=== PATIENT | male | born 1955 | race Caucasian/White ===

== ENCOUNTER 2017-03-01 13:05 | Day surgery (SDC) | payer OTHER ==
[2017-03-01 13:34] VITALS: BP 137/69; PULSE 75; RESP 16; TEMP 98.6; O2SAT 97
--- NOTE | 2017-03-01 14:13 | RADRPT ---
EXAM DATE/TIME: 03/01/2017 13:35 [place] COMPARISON: No previous studies available for comparison. INDICATIONS : Abdominal distention. MEDICAL HISTORY : Hypertension. Liver failure. SURGICAL HISTORY : Paracentesis. Colonoscopy. ENCOUNTER: Initial ACUITY: 2 weeks PAIN SCORE: 2/10 LOCATION: Bilateral lower quadrant AREA EVALUATED: Bilater lower and upper quadrants. FINDINGS: Imaging of the abdomen and pelvis was performed to evaluate for ascites for possible paracentesis. N o significant fluid identified. CONCLUSION: No significant fluid identified. Paracentesis was not performed. Keanu Gonzalez MD on March 01, 2017 at 14:10 Board Certified Radiologist. This report was verified electronically.
== END 2017-03-01 14:02 | disposition home or self-care (01) ==
LOC: HRAD 13:05 → HRIP 13:11 → HRAD 14:02
DX: R14.0 Abdominal distension (gaseous) (principal); R18.8 Other ascites; K74.60 Unspecified cirrhosis of liver; I10 Essential (primary) hypertension
CPT/HCPCS: 76705

== ENCOUNTER → 2017-06-06 | Outpatient (CLI) | payer OTHER ==
[~2017-06-06] VITALS: Ht 167.6 cm; Wt 102.3 kg
[~2017-06-06] MED LIST: BUME2TAB PO; CARV3.12 PO; CHEL50TA PO; CHLORHEXIDINE GLUCONATE 2 % 1 PACK (2 CLOTHS) TOPICAL PRN; DO NOT ADM ANY ANTICOAGULANT DRUGS PRN; INSULIN HUMAN REGULAR 1,000 UNITS/10 ML VIAL SQ PRN; LACTATED RINGER'S 1000 ML IV PRN; LEVOFLOXACIN 500 MG PREMIX INJ 100 ML IV ONE; METOPROLOL TARTRATE 25 MG TAB PO PRN; POTA1TAB77 PO; POVIDONE IODINE 5% (ANTISEPSIS KIT) 4 APPLICATIONS EACH NARE PRN; PROPOFOL 200 MG/20 ML AMP IV ONE; SODIUM CHLORID 0.9% 500 ML IV PRN; SPIR50TA PO; VITA1CAP7 PO; XIFA550T4 PO
--- NOTE | 2017-06-06 13:19 | GIPROC ---
[facility] [address] [facility]. [facility], [address] EGD PROCEDURE REPORT EXAM DATE: 06/06/2017 PATIENT NAME: Giorgi Monge MR #: [id number] BIRTHDATE: 1955 ATTENDING: Belgica Martinez MD ORDER #: [id number] CORPORATE QUALITY ENGINEER: Jewels Herr and Noy Harding STATUS: outpatient INDICATIONS: The patient is a 62 yr old male here for an EGD due to liver cirrhosis, esophageal varices PROCEDURE PERFORMED: EGD w/ biopsy EGD w/ band ligation of varices MEDICATIONS: None and Per Anesthesia. TOPICAL ANESTHETIC: none CONSENT: The patient understands the risks and benefits of the procedure and understands that these risks include, but are not limited to: sedation, allergic reaction, infection, perforation and/or bleeding. Alternative means of evaluation and treatment include, among others: physical exam, x-rays, and/or surgical intervention. The patient elects to proceed with this endoscopic procedure. medical equipment was checked for proper function. Hand hygiene and appropriate measures for infection prevention was taken. After the risks, benefits and alternatives of the procedure were thoroughly explained, Informed consent was verified, confirmed and timeout was successfully executed by the treatment team. The patient was anesthetized with topical anesthesia and the Pentax EG-[id number] endoscope was introduced through the mouth and advanced to the second portion of the duodenum. Retroflexed views revealed a hiatal hernia The gastroscope was then slowly withdrawn and removed. Portal gastropathy esophageal varices -grade 3 -3 columns-4 bands applied. ADVERSE EVENTS: There were no complications. IMPRESSIONS: 1. Portal gastropathy esophageal varices -grade 3 -3 columns-4 bands applied 2. Retroflexed views revealed a hiatal hernia RECOMMENDATIONS: 1. Anti-reflux regimen 2. Await biopsy results. Biopsy results will not be ready for 7-10 days. If you don't hear from us in two weeks, call our office for biopsy results. 3. Clear liquid diet today than soft PATIENT CONDITION: stable DISPOSITION: Home REPEAT EXAM: Return 3 months as needed for EGD pending pathology report Belgica Martinez MD eSigned: Belgica Martinez MD 06/06/2017 1:18 PM cc:
[2017-06-06 14:33] VITALS: BP 122/72; PULSE 66; RESP 16; TEMP 98.6; O2SAT 99
--- NOTE | 2017-06-06 20:12 | EKG ---
Date Performed: 06/06/2017 Time Performed: 09:11:00 PTAGE: 62 years EKG: Sinus rhythm MINIMAL ST DEPRESSION BORDERLINE ECG NO PREVIOUS TRACING DOCTOR: Ga Vargas Interpretating Date/Time 06/06/2017 20:10:39
== END ==
LOC: HEND 08:39
PROVIDERS: ATTEND Internal Medicine Gastroenterology
DX: I85.00 Esophageal varices without bleeding (principal); K74.60 Unspecified cirrhosis of liver; K44.9 Diaphragmatic hernia without obstruction or gangrene; K76.6 Portal hypertension; K31.89 Other diseases of stomach and duodenum; R94.31 Abnormal electrocardiogram [ECG] [EKG]
CPT/HCPCS: 00740; 43239; 43244; 88305; 88312; 93005; J1956; J7120

== ENCOUNTER → 2017-09-04 | Day surgery (SDC) | payer OTHER ==
[~2017-09-04] MED LIST changes: -CHLORHEXIDINE GLUCONATE 2 % 1 PACK (2 CLOTHS) TOPICAL PRN; -DO NOT ADM ANY ANTICOAGULANT DRUGS PRN; -INSULIN HUMAN REGULAR 1,000 UNITS/10 ML VIAL SQ PRN; -LACTATED RINGER'S 1000 ML IV PRN; -LEVOFLOXACIN 500 MG PREMIX INJ 100 ML IV ONE; -METOPROLOL TARTRATE 25 MG TAB PO PRN; -POVIDONE IODINE 5% (ANTISEPSIS KIT) 4 APPLICATIONS EACH NARE PRN; -SODIUM CHLORID 0.9% 500 ML IV PRN
--- NOTE | 2017-09-04 10:34 | GIPROC ---
[facility] [address] [facility], [address] EGD PROCEDURE REPORT EXAM DATE: 09/04/2017 PATIENT NAME: Giorgi Monge MR #: [id number] BIRTHDATE: 1955 ATTENDING: Zaira Ojeda MD ORDER #: [id number] [employer]UCTURAL MILL SUPERVISOR: Geovanny Christensen RN STATUS: outpatient INDICATIONS: The patient is a 62 yr old male here for an EGD due to screening for varices PROCEDURE PERFORMED: EGD w/ biopsy MEDICATIONS: None and Per Anesthesia. TOPICAL ANESTHETIC: CONSENT: The patient understands the risks and benefits of the procedure and understands that these risks include, but are not limited to: sedation, allergic reaction, infection, perforation and/or bleeding. Alternative means of evaluation and treatment include, among others: physical exam, x-rays, and/or surgical intervention. The patient elects to proceed with this endoscopic procedure. medical equipment was checked for proper function. Hand hygiene and appropriate measures for infection prevention was taken. After the risks, benefits and alternatives of the procedure were thoroughly explained, Informed consent was verified, confirmed and timeout was successfully executed by the treatment team. The patient was anesthetized with topical anesthesia and the EG-[id number] ([id number]) endoscope was introduced through the mouth and advanced to the second portion of the duodenum. Retroflexed views revealed no abnormalities The gastroscope was then slowly withdrawn and removed. ESOPHAGUS: There was a single small varix in the mid esophagus. The varices were not bleeding. There was evidence of prior scarring. STOMACH: There was erythematous moderate gastritis in the gastric antrum. A biopsy was performed using cold forceps. Sample sent for histology. DUODENUM: The duodenal mucosa appeared normal in the bulb and second portion of the duodenum. ADVERSE EVENTS: There were no complications. IMPRESSIONS: 1. There was erythematous gastritis in the gastric antrum; biopsy was performed 2. Normal duodenal mucosa in the bulb and second portion of the duodenum 3. Retroflexed views revealed no abnormalities RECOMMENDATIONS: 1. Await biopsy results. Biopsy results will not be ready for 7-10 days. If you don't hear from us in two weeks, call our office for biopsy results. 2. Anti-reflux regimen 3. Continue PPI 4. Nadolol 20mg 1 po daily PATIENT CONDITION: stable DISPOSITION: Home REPEAT EXAM: Return 6 months EGD with sclerotherapy Zaira Ojeda MD eSigned: Zaira Ojeda MD 09/04/2017 10:34 AM cc: [facility] Madsen [facility] M[facility] PATIENT NAME: Giorgi Monge MR#: [id number]
== END | disposition home or self-care (01) ==
LOC: ESDC 09:19
PROVIDERS: ATTEND Internal Medicine Gastroenterology
DX: I85.00 Esophageal varices without bleeding (principal); K29.70 Gastritis, unspecified, without bleeding
CPT/HCPCS: 00740; 43239; 88305; 88312; J3010